=== PATIENT | female | born 1985 | race Caucasian/White ===

== ENCOUNTER 2019-07-19 04:57 | Inpatient (IN) | payer BC ==
[~2019-07-19] VITALS: Ht 165.1 cm; Wt 95.5 kg
[2019-07-19] MEDS: LACTATED RINGERS 1,000 ML IV SCH ×3 (05:28→21:28)
[2019-07-19] MEDS ORDERED: METOCLOPRAMIDE 5 MG/ML, 2ML IV ONE (05:30)
[2019-07-19] MEDS ORDERED: LACTATED RINGERS 1,000 ML IVBOLUS ONE (05:30)
[2019-07-19] MEDS ORDERED: SODIUM CITRATE/CITRIC ACID 30 ML UDC PO ONE (05:30)
[2019-07-19] MEDS ORDERED: METOCLOPRAMIDE 5 MG/ML, 2ML ONE (05:38)
[2019-07-19] MEDS ORDERED: NEWBORN KIT ONE (05:38)
[2019-07-19] MEDS ORDERED: OXYTOCIN 30U/ 0.9% NaCL 500ML 500 ML ONE (05:38)
[2019-07-19] MEDS ORDERED: SODIUM CITRATE/CITRIC ACID 30 ML UDC ONE (05:39)
[2019-07-19 05:51] VITALS: BP 127/81
[2019-07-19 06:13] LABS: BASOPHILS # (AUTO) 0.02 x10^3/uL (0-0.1); BASOPHILS % (AUTO) 0 % (0-1); EOSINOPHILS # (AUTO) 0.16 x10^3/uL (0-0.4); EOSINOPHILS % (AUTO) 2 % (1-7); LYMPHOCYTES # (AUTO) 1.81 x10^3/uL (1-3.4); LYMPHOCYTES % (AUTO) 22 % (22-44); MD NO; MEAN CORPUSCULAR HEMOGLOBIN 31.6 pg (27.0-34.8); MEAN CORPUSCULAR HGB CONC 33.9 g/dL (32.4-35.8); MEAN CORPUSCULAR VOLUME 93.2 fL (80-100); MONOCYTES # (AUTO) 0.68 x10^3/uL (0.2-0.8); MONOCYTES % (AUTO) 8 % (2-9); NEUTROPHILS # (AUTO) 5.47 x10^3/uL (1.8-6.8); NEUTROPHILS % (AUTO) 67 % (42-75); PLATELET COUNT 241 x10^3/uL (130-400); RED CELL DISTRIBUTION WIDTH 14.1 % (9.6-15.2)
[2019-07-19] MEDS ORDERED: ASPI-515 PO (06:14)
[2019-07-19] MEDS ORDERED: PREN1TAB60 PO (06:14)
[2019-07-19] MEDS ORDERED: FERR-46 PO (06:16)
[2019-07-19] MEDS ORDERED: CEFAZOLIN 1,000 MG ONE (07:08)
[2019-07-19] MEDS ORDERED: OXYTOCIN 10 UNITS/ML, 1ML ONE (07:08)
[2019-07-19] MEDS ORDERED: ONDANSETRON 2MG/ML, 2ML ONE (07:08)
[2019-07-19] MEDS ORDERED: HYDROmorphone 2 MG/ML, 1ML ONE (07:09)
[2019-07-19] MEDS ORDERED: FENTANYL PF 100 MCG/2ML ONE (07:09)
[2019-07-19] MEDS ORDERED: SODIUM CHLORIDE 0.9% PF 10ML ONE ×2 (07:10)
[2019-07-19] MEDS ORDERED: DIPH,PERTUSS(ACELL),TET VAC/PF NC IM-VACC PRN (08:00)
[2019-07-19] MEDS ORDERED: RHOGAM FROM BLOOD BANK 1 NOTE EA IM/IV ONE (08:00)
[2019-07-19] MEDS ORDERED: SIMETHICONE 80 MG CHEW TAB PO PRN (08:00)
[2019-07-19] MEDS ORDERED: MISOPROSTOL 200 MCG TABLET PR PRN (08:00)
[2019-07-19] MEDS ORDERED: ONDANSETRON 2MG/ML, 2ML IV PRN (08:00)
[2019-07-19] MEDS ORDERED: ACETAMINOPHEN 325 MG TABLET PO PRN (08:00)
[2019-07-19] MEDS ORDERED: KETOROLAC 30 MG/1 ML ONE ×2 (08:12→15:12)
[2019-07-19] MEDS ORDERED: OXYcodone 5 MG/5 ML ORAL.SOL UDC ONE (09:33)
[2019-07-19] MEDS: OXYTOCIN 30U/ 0.9% NaCL 500ML 500 ML IV SCH ×2 (09:48→17:31)
[2019-07-19] MEDS ORDERED: OXYcodone 5 MG/5 ML ORAL.SOL UDC PO PRN (10:00)
[2019-07-19 10:35] VITALS: BP 111/74
[2019-07-19] MEDS: PRENATAL VIT/IRON/FA 1 EACH TABLET PO SCH (10:54)
[2019-07-19] MEDS: OXYcodone/APAP 5/325MG TABLET PO PRN ×2 (13:13→18:54)
[2019-07-19 14:58] VITALS: BP 121/84
[2019-07-19] MEDS: KETOROLAC 30 MG/1 ML IVPush SCH ×2 (15:17→21:53)
[2019-07-19 16:08] LABS: BASOPHILS # (AUTO) 0.02 x10^3/uL (0-0.1); BASOPHILS % (AUTO) 0 % (0-1); EOSINOPHILS # (AUTO) 0.11 x10^3/uL (0-0.4); EOSINOPHILS % (AUTO) 1 % (1-7); LYMPHOCYTES % (AUTO) 14 % (22-44); MD NO; MEAN CORPUSCULAR HEMOGLOBIN 31.8 pg (27.0-34.8); MEAN CORPUSCULAR HGB CONC 33.7 g/dL (32.4-35.8); MEAN CORPUSCULAR VOLUME 94.2 fL (80-100); MEAN PLATELET VOLUME 8.2 fL (7.4-10.4); MONOCYTES # (AUTO) 0.67 x10^3/uL (0.2-0.8); MONOCYTES % (AUTO) 6 % (2-9); NEUTROPHILS # (AUTO) 8.68 x10^3/uL (1.8-6.8); NEUTROPHILS % (AUTO) 79 % (42-75); PLATELET COUNT 250 x10^3/uL (130-400); RED BLOOD COUNT 3.34 x10^6/uL (3.82-5.3); RED CELL DISTRIBUTION WIDTH 13.9 % (9.6-15.2)
[2019-07-19 21:35] VITALS: BP 115/75
[2019-07-19] MEDS: DOCUSATE 100 MG CAPSULE PO PRN (21:53)
[2019-07-20] MEDS: OXYcodone/APAP 5/325MG TABLET PO PRN ×4 (01:07→22:06)
[2019-07-20 01:20] VITALS: BP 121/83
[2019-07-20] MEDS: OXYTOCIN 30U/ 0.9% NaCL 500ML 500 ML IV SCH ×3 (03:31→23:31)
[2019-07-20] MEDS: KETOROLAC 30 MG/1 ML IVPush SCH ×3 (03:55→16:17)
[2019-07-20 04:00] VITALS: BP 114/74
[2019-07-20] MEDS: LACTATED RINGERS 1,000 ML IV SCH ×2 (05:28→13:28)
[2019-07-20 07:47] VITALS: BP 122/81
[2019-07-20] MEDS: PRENATAL VIT/IRON/FA 1 EACH TABLET PO SCH (09:27)
[2019-07-20] MEDS: DOCUSATE 100 MG CAPSULE PO PRN ×2 (09:27→22:06)
[2019-07-20 20:00] VITALS: BP 131/83
[2019-07-20] MEDS: IBUPROFEN 600 MG TABLET PO PRN (22:06)
[2019-07-21] MEDS: OXYcodone/APAP 5/325MG TABLET PO PRN ×2 (02:04→08:17)
[2019-07-21 08:13] VITALS: BP 128/89
[2019-07-21] MEDS: DOCUSATE 100 MG CAPSULE PO PRN (08:16)
[2019-07-21] MEDS: PRENATAL VIT/IRON/FA 1 EACH TABLET PO SCH (08:17)
[2019-07-21] MEDS: IBUPROFEN 600 MG TABLET PO PRN (08:17)
[2019-07-21] MEDS: OXYTOCIN 30U/ 0.9% NaCL 500ML 500 ML IV SCH (09:31)
[2019-07-21] MEDS ORDERED: OXYC-302 PO (10:01)
[2019-07-21] MEDS ORDERED: IBUP-1222 PO (10:01)
[2019-07-21] MEDS ORDERED: DOCU-131 PO (10:01)
== END 2019-07-21 10:40 | disposition home or self-care (01) | DRG 785 ==
LOC: LDIP 04:57 → 2NW 10:30
PROVIDERS: ADMIT Obstetrics & Gynecology; ATTEND Obstetrics & Gynecology
PROC: 10D00Z1 Extraction of Products of Conception, Low, Open Approach (ICD-10-PCS; principal; 2019-07-19)
PROC: 0UB70ZZ Excision of Bilateral Fallopian Tubes, Open Approach (ICD-10-PCS; 2019-07-19)
DX: O34.211 Maternal care for low transverse scar from previous cesarean delivery (principal); O69.81X0 Labor and delivery complicated by cord around neck, without compression, not applicable or unspecified; Z37.0 Single live birth; Z3A.38 38 weeks gestation of pregnancy; Z79.82 Long term (current) use of aspirin; Z88.8 Allergy status to other drugs, medicaments and biological substances; O13.4 Gestational [pregnancy-induced] hypertension without significant proteinuria, complicating childbirth
CPT/HCPCS: 36415; 82803; 85025; 86592; 86850; 86900; 88302; G0378; J0690; J1170; J1885; J2405; J3010; J2590; J2765; J7120